=== PATIENT | female | born 2000 | race Caucasian/White ===

== ENCOUNTER 2024-05-29 11:30 | Emergency (ER) | payer OTHER ==
[~2024-05-29] VITALS: Ht 167.6 cm; Wt 138.0 kg
[2024-05-29 11:32] VITALS: BP 148/86; PULSE 83; RESP 16; O2SAT 95
[2024-05-29] MEDS ORDERED: LIDOcaine/epinephrine/tetracaine TOPICAL sol 3 ML syringe TOP ONE (12:20)
[2024-05-29] MEDS: TETanus/Pertussis (Acell)/Diphther VAC/PF (Tdap-Adult) 0.5ml syringe IMVAC ONE (13:03)
[2024-05-29 13:10] VITALS: TEMP 98.2
== END 2024-05-29 13:11 | disposition home or self-care (01) ==
LOC: ER 11:31
DX: S67.22XA Crushing injury of left hand, initial encounter (principal); Z88.6 Allergy status to analgesic agent; W23.0XXA Caught, crushed, jammed, or pinched between moving objects, initial encounter; Y93.89 Activity, other specified; Y92.89 Other specified places as the place of occurrence of the external cause; Y99.8 Other external cause status
CPT/HCPCS: 29130; 73140; 90471; 90715; 99283; A6258